=== PATIENT | male | born 1945 | race Two or more races ===

== ENCOUNTER 2019-10-28 22:24 | Emergency (ER) | payer OTHER ==
[~2019-10-28] VITALS: Ht 167.6 cm; Wt 100.0 kg
[2019-10-28] MEDS ORDERED: MORPHINE SULFATE 4 MG/ML CPJ (NOT FOR IM USE) IV STA (23:28)
[2019-10-28] MEDS ORDERED: ONDANSETRON HCL 4MG/2ML INJ IV STA (23:28)
[2019-10-29] MEDS ORDERED: SODIUM CHLORIDE 0.9% 1,000 ML IV ONE (01:21)
[2019-10-29 02:00] VITALS: BP 99/58
== END 2019-10-29 03:05 | disposition short-term general hospital (02) ==
LOC: ER 22:24
DX: C64.9 Malignant neoplasm of unspecified kidney, except renal pelvis (principal); E86.0 Dehydration; I11.0 Hypertensive heart disease with heart failure; I50.9 Heart failure, unspecified
CPT/HCPCS: 82962; 93005; 96361; 96374; 96375; 99285; J2270; J2405